=== PATIENT | female | born 1995 | race Caucasian/White ===

== ENCOUNTER 2022-05-13 05:45 | Inpatient (IN) | payer OTHER ==
[2022-05-13 06:59] VITALS: BMI 31.6
[2022-05-13] MEDS ORDERED: ELECTROLYTE-148 SOLN 1,000 ML IV SCH ×2 (07:15→08:00)
[2022-05-13] MEDS ORDERED: CITRIC ACID/SODIUM CITRATE 30 ML UNIT-DOSE CUP PO ONE (07:15)
[2022-05-13] MEDS ORDERED: ELECTROLYTE-148 SOLN 500 ML IV ONE (07:15)
[2022-05-13] MEDS ORDERED: SUCCINYLCHOLINE CHLORIDE 200 MG/10 ML SYRINGE ONE (07:55)
[2022-05-13] MEDS ORDERED: PROPOFOL 20 ML ONE (07:55)
[2022-05-13] MEDS ORDERED: morphine SULFATE (PF) 1 MG/2 ML SYRINGE ONE (07:55)
[2022-05-13] MEDS ORDERED: ePHEDrine SULFATE 50 MG/1 ML AMPULE ONE (07:56)
[2022-05-13] MEDS ORDERED: ONDANSETRON 4 MG/2 ML VIAL IVPUSH PRN (08:01)
[2022-05-13] MEDS ORDERED: morphine SULFATE/PF 1 MG/2 ML (2cc Syringe - QUVA) EP ONE (08:01)
[2022-05-13] MEDS ORDERED: PHENYLEPHRINE HCL 10 MG/1 ML SINGLE DOSE VIAL ONE (08:30)
[2022-05-13] MEDS ORDERED: MISOPROSTOL 200 MCG TABLET ONE (08:42)
[2022-05-13] MEDS ORDERED: IBUPROFEN 800 MG/8 ML IJ IVPB PRN (09:00)
[2022-05-13] MEDS ORDERED: WITCH HAZEL 50% (TUCKS) 40 PAD/JAR PAD TP PRN (09:00)
[2022-05-13] MEDS ORDERED: IBUPROFEN 600 MG TABLET (FP) PO PRN (09:00)
[2022-05-13] MEDS ORDERED: BENZOCAINE 20% 57 GM BOTTLE TP PRN (09:00)
[2022-05-13] MEDS ORDERED: BENZOCAINE 28 GM HEMORRHOIDAL OINTMENT TP PRN (09:00)
[2022-05-13] MEDS ORDERED: METHYLERGONOVINE MALEATE 0.2 MG/1 ML AMP IM PRN (09:00)
[2022-05-13] MEDS ORDERED: OXYTOCIN 20 UNITS in 0.9% NS 20 UNIT/1,000 ML INFUS.BAG IV ONE (09:40)
[2022-05-13] MEDS: OXYTOCIN 20 UNITS in 0.9% NS 20 UNIT/1,000 ML INFUS.BAG IV SCH ×2 (09:42→18:04)
[2022-05-13] MEDS: FERROUS SO4 325 MG TABLET (FP) PO SCH ×2 (09:43→22:00)
[2022-05-13] MEDS ORDERED: MISOPROSTOL 200 MCG TABLET PV ONE (09:43)
[2022-05-13] MEDS: PRENATAL VITAMINS W/ FOLIC ACID TABLET (FP) PO SCH (10:16)
[2022-05-13] MEDS: ACETAMINOPHEN 1000 MG/100 ML BAG IVPB PRN ×3 (11:21→23:55)
[2022-05-14] MEDS: ACETAMINOPHEN 325 MG TABLET (FP) PO PRN ×3 (05:59→21:54)
[2022-05-14 08:56] LABS: BASO % 0.5 % (0-2.0); EOS % 0.3 % (0-4.5); HEMOGLOBIN 9.4 GM/dL (10.7-15.3); LYMPH % 15.3 % (8-40); MCH 29.4 pg (25.7-33.7); MCHC 33.5 g/dl (32.0-36.0); MEAN CELL VOLUME 87.7 fl (80-96); MEAN PLT VOLUME 8.1 fl (7.5-11.1); NEUT % 77.9 % (42.8-82.8); PLATELET COUNT 191 10^3/uL (134-434); RBC 3.19 M/mm3 (3.60-5.2); RDW 12.9 % (11.6-15.6)
[2022-05-14] MEDS ORDERED: BISACODYL 10 MG SUPP.RECT RC PRN (09:00)
[2022-05-14] MEDS ORDERED: FLU VACC QS2022-23(6MOS UP)/PF 60 MCG/0.5 ML SYRINGE IM ONE (10:00)
[2022-05-14] MEDS ORDERED: DIPHTH,PERTUSS(ACELL),TET 0.5 ML DISP.SYRIN IM ONE (10:00)
[2022-05-14] MEDS: FERROUS SO4 325 MG TABLET (FP) PO SCH ×2 (10:21→21:00)
[2022-05-14] MEDS: PRENATAL VITAMINS W/ FOLIC ACID TABLET (FP) PO SCH (10:23)
[2022-05-14] MEDS: SIMETHICONE 80 MG TAB.CHEW (FP) PO PRN (20:01)
[2022-05-14] MEDS: SENNOSIDES/DOCUSATE COMBO (SENNA PLUS) TABLET (UD) PO PRN (20:04)
[2022-05-15] MEDS: SIMETHICONE 80 MG TAB.CHEW (FP) PO PRN ×2 (03:20→21:20)
[2022-05-15] MEDS: ACETAMINOPHEN 325 MG TABLET (FP) PO PRN (03:23)
[2022-05-15] MEDS: FERROUS SO4 325 MG TABLET (FP) PO SCH ×2 (09:29→21:20)
[2022-05-15] MEDS: PRENATAL VITAMINS W/ FOLIC ACID TABLET (FP) PO SCH (09:29)
[2022-05-15] MEDS: oxyCODONE HCL 5 MG TABLET PO PRN ×2 (12:52→18:37)
[2022-05-15] MEDS: SENNOSIDES/DOCUSATE COMBO (SENNA PLUS) TABLET (UD) PO PRN (21:20)
[2022-05-15 23:57] VITALS: RESP 17
[2022-05-16] MEDS: oxyCODONE HCL 5 MG TABLET PO PRN (01:25)
[2022-05-16 09:08] LABS: BASO % 0.4 % (0-2.0); EOS % 2.4 % (0-4.5); HEMOGLOBIN 10.4 GM/dL (10.7-15.3); LYMPH % 20.7 % (8-40); MCH 29.3 pg (25.7-33.7); MCHC 33.6 g/dl (32.0-36.0); MEAN CELL VOLUME 87.3 fl (80-96); MEAN PLT VOLUME 7.7 fl (7.5-11.1); MONO % 10.1 % (3.8-10.2); NEUT % 66.4 % (42.8-82.8); PLATELET COUNT 270 10^3/uL (134-434); RBC 3.55 M/mm3 (3.60-5.2); RDW 12.8 % (11.6-15.6); WHITE BLOOD COUNT 7.3 K/mm3 (4.0-10.0)
[2022-05-16] MEDS: SIMETHICONE 80 MG TAB.CHEW (FP) PO PRN (09:55)
[2022-05-16] MEDS: ACETAMINOPHEN 325 MG TABLET (FP) PO PRN (09:55)
[2022-05-16] MEDS: FERROUS SO4 325 MG TABLET (FP) PO SCH (09:56)
[2022-05-16] MEDS: PRENATAL VITAMINS W/ FOLIC ACID TABLET (FP) PO SCH (09:56)
[2022-05-16 11:43] VITALS: BP 112/64; PULSE 78; TEMP 98.4
== END 2022-05-16 13:20 | disposition home or self-care (01) | DRG 540 ==
LOC: EDBD → JLDR 05:45 → J3W 10:30
PROVIDERS: ADMIT Obstetrics & Gynecology; ATTEND Obstetrics & Gynecology
PROC: 10D00Z1 Extraction of Products of Conception, Low, Open Approach (ICD-10-PCS; principal; 2022-05-13)
DX: O34.211 Maternal care for low transverse scar from previous cesarean delivery (principal); O69.81X0 Labor and delivery complicated by cord around neck, without compression, not applicable or unspecified; Z3A.39 39 weeks gestation of pregnancy; Z37.0 Single live birth
CPT/HCPCS: 36415; 85025; 88307-TC; 90715; G0008; Q2036

== ENCOUNTER 2024-09-13 16:12 | Inpatient (IN) | payer OTHER ==
[2024-09-13] MEDS ORDERED: ACETAMINOPHEN INJECTION 100 ML ONE ×2 (17:13→23:04)
[2024-09-13] MEDS: ELECTROLYTE-148 SOLN 500 ML IV SCH (17:15)
[2024-09-13] MEDS: ACETAMINOPHEN 1000 MG/100 ML BAG IVPB ONE ×2 (17:20→23:10)
[2024-09-13] MEDS: ELECTROLYTE-148 SOLN 1,000 ML IV SCH (18:44)
[2024-09-13 19:28] LABS: BASO % 0.7 % (0-2.0); EOS % 0.6 % (0-4.5); HEMATOCRIT 27.1 % (32.4-45.2); HEMOGLOBIN 8.6 GM/dL (10.7-15.3); LYMPH % 24.8 % (8-40); MCH 22.7 pg (25.7-33.7); MCHC 31.7 g/dl (32.0-36.0); MEAN CELL VOLUME 71.6 fl (80-96); MEAN PLT VOLUME 8.4 fl (7.5-11.1); NEUT % 64.9 % (42.8-82.8); PLATELET COUNT 235 10^3/uL (134-434); RBC 3.78 M/mm3 (3.60-5.2); RDW 16.6 % (11.6-15.6); WHITE BLOOD COUNT 8.2 K/mm3 (4.0-10.0)
[2024-09-13 19:36] LABS: PROTHROMBIN TIME (PATIENT) 10.9 SEC (9.7-13.0)
[2024-09-13 19:39] LABS: ACTIVATED PTT 25.9 SECONDS (25.2-36.5)
[2024-09-13 20:13] LABS: POTASSIUM 4.1 mmol/L (3.5-5.1)
[2024-09-13 20:15] LABS: ALBUMIN 2.7 g/dl (3.4-5.0); BLOOD UREA NITROGEN 8.9 mg/dL (7-18); CALCIUM 7.9 mg/dL (8.5-10.1)
[2024-09-13 20:19] LABS: CREATININE 0.4 mg/dL (0.55-1.3)
[2024-09-13 20:20] LABS: BILIRUBIN,TOTAL 0.2 mg/dL (0.2-1)
[2024-09-13 20:22] LABS: TOT PROT 6.2 g/dl (6.4-8.2)
[2024-09-14 00:20] VITALS: BMI 29.2
[2024-09-14 07:37] LABS: BASO % 0.8 % (0-2.0); EOS % 0.8 % (0-4.5); HEMATOCRIT 23.7 % (32.4-45.2); HEMOGLOBIN 7.5 GM/dL (10.7-15.3); LYMPH % 31.2 % (8-40); MCH 22.9 pg (25.7-33.7); MCHC 31.8 g/dl (32.0-36.0); MEAN CELL VOLUME 72.1 fl (80-96); MEAN PLT VOLUME 8.5 fl (7.5-11.1); MONO % 8.7 % (3.8-10.2); NEUT % 58.5 % (42.8-82.8); PLATELET COUNT 223 10^3/uL (134-434); RBC 3.28 M/mm3 (3.60-5.2); RDW 16.3 % (11.6-15.6); WHITE BLOOD COUNT 7.5 K/mm3 (4.0-10.0)
[2024-09-14] MEDS ORDERED: morphine SULFATE/PF 1 MG/2 ML (2cc Syringe - QUVA) ONE (09:05)
[2024-09-14] MEDS ORDERED: FENTANYL CITRATE/PF 50 MCG/ML VIAL ONE (09:05)
[2024-09-14 09:29] LABS: BASO % 0.6 % (0-2.0); EOS % 0.5 % (0-4.5); HEMATOCRIT 27.1 % (32.4-45.2); HEMOGLOBIN 8.8 GM/dL (10.7-15.3); LYMPH % 28.4 % (8-40); MCHC 32.4 g/dl (32.0-36.0); MEAN CELL VOLUME 71.1 fl (80-96); MEAN PLT VOLUME 8.7 fl (7.5-11.1); MONO % 8.6 % (3.8-10.2); NEUT % 61.9 % (42.8-82.8); PLATELET COUNT 230 10^3/uL (134-434); RBC 3.82 M/mm3 (3.60-5.2); RDW 16.6 % (11.6-15.6); WHITE BLOOD COUNT 7.2 K/mm3 (4.0-10.0)
[2024-09-14 09:30] LABS: INR 1.03 (0.83-1.09); PROTHROMBIN TIME (PATIENT) 11.3 SEC (9.7-13.0)
[2024-09-14] MEDS ORDERED: LIGASURE IMPACT TP ONE (09:30)
[2024-09-14 09:33] LABS: ACTIVATED PTT 25.3 SECONDS (25.2-36.5)
[2024-09-14] MEDS ORDERED: OXYTOCIN 10 UNITS/ML VIAL ONE (09:33)
[2024-09-14 09:58] LABS: POTASSIUM 3.9 mmol/L (3.5-5.1)
[2024-09-14 10:01] LABS: CALCIUM 8.4 mg/dL (8.5-10.1)
[2024-09-14 10:02] LABS: BLOOD UREA NITROGEN 5.7 mg/dL (7-18)
[2024-09-14 10:05] LABS: CREATININE 0.4 mg/dL (0.55-1.3)
[2024-09-14 10:20] LABS: CORD BASE EXCESS -2.8 mmol/L (0-2); CORD HCO3 23.8 mmHg (20-29); CORD PCO2 48.8 mmHg (30-78); CORD pH 7.306 (7.14-7.44)
[2024-09-14 10:20] LABS: CORD BASE EXCESS -3.3 mmol/L (0-2); CORD HCO3 22.2 mmHg (20-29); CORD PCO2 41.3 mmHg (30-78); CORD pH 7.348 (7.14-7.44)
[2024-09-14] MEDS ORDERED: ONDANSETRON 4 MG/2 ML VIAL IVPB PRN (11:22)
[2024-09-14] MEDS ORDERED: IBUPROFEN 600 MG TABLET (FP) PO PRN ×2 (11:24→12:40)
[2024-09-14] MEDS ORDERED: ACETAMINOPHEN 325 MG TABLET (FP) PO PRN (11:24)
[2024-09-14] MEDS ORDERED: SIMETHICONE 80 MG TAB.CHEW (FP) PO PRN (11:24)
[2024-09-14] MEDS ORDERED: METHYLERGONOVINE MALEATE 0.2 MG/1 ML AMP IM PRN (11:24)
[2024-09-14] MEDS ORDERED: OXYTOCIN 20 UNITS in 0.9% NS 20 UNIT/1,000 ML INFUS.BAG IV SCH (11:30)
[2024-09-14] MEDS ORDERED: ACETAMINOPHEN INJECTION 100 ML ONE (11:34)
[2024-09-14] MEDS: ACETAMINOPHEN 1000 MG/100 ML BAG IVPB PRN (11:36)
[2024-09-14] MEDS ORDERED: IBUPROFEN (CALDOLOR) 800 MG/200 ML PREMIX BAGS IVPB SCH (12:45)
[2024-09-14] MEDS: OXYTOCIN 20 UNITS in 0.9% NS 20 UNIT/1,000 ML INFUS.BAG IV SCH (12:47)
[2024-09-14] MEDS: ACETAMINOPHEN 1000 MG/100 ML BAG IVPB SCH (12:49)
[2024-09-14 18:46] LABS: HIV INTERPRETATION NEGATIVE (NEGATIVE)
[2024-09-14] MEDS: IBUPROFEN (CALDOLOR) 800 MG/200 ML PREMIX BAGS IVPB SCH (19:39)
[2024-09-14] MEDS: SENNOSIDES/DOCUSATE COMBO (SENNA PLUS) TABLET (UD) PO SCH (22:40)
[2024-09-14] MEDS ORDERED: oxyCODONE HCL 5 MG TABLET PO PRN ×2 (23:24)
[2024-09-15 06:25] VITALS: RESP 18
[2024-09-15 08:16] LABS: BASO % 0.5 % (0-2.0); EOS % 0.3 % (0-4.5); HEMOGLOBIN 9.5 GM/dL (10.7-15.3); LYMPH % 12.2 % (8-40); MCH 24.3 pg (25.7-33.7); MCHC 32.9 g/dl (32.0-36.0); MEAN CELL VOLUME 73.8 fl (80-96); MEAN PLT VOLUME 8.4 fl (7.5-11.1); MONO % 7.5 % (3.8-10.2); NEUT % 79.5 % (42.8-82.8); PLATELET COUNT 197 10^3/uL (134-434); RBC 3.93 M/mm3 (3.60-5.2); RDW 17.9 % (11.6-15.6); WHITE BLOOD COUNT 12.6 K/mm3 (4.0-10.0)
[2024-09-15] MEDS: ACETAMINOPHEN 500 MG TABLET (FP) PO PRN (09:35)
[2024-09-15] MEDS: PRENATAL VITAMINS W/ FOLIC ACID TABLET (FP) PO SCH (09:52)
[2024-09-15] MEDS: DIPHTH,PERTUSS(ACELL),TET 0.5 ML DISP.SYRIN IM ONE (09:52)
[2024-09-15] MEDS: ENOXAPARIN NA (PORCINE) 40 MG/0.4 ML DISP.SYRIN SQ SCH (09:54)
[2024-09-15] MEDS ORDERED: IBUPROFEN 600 MG TABLET (FP) PO PRN (10:30)
[2024-09-15] MEDS ORDERED: BISACODYL 10 MG SUPP.RECT RC PRN ×2 (11:22→11:24)
[2024-09-15] MEDS: oxyCODONE HCL 5 MG TABLET PO PRN (18:45)
[2024-09-15] MEDS: SIMETHICONE 80 MG TAB.CHEW (FP) PO PRN (20:05)
[2024-09-17 11:15] VITALS: BP 106/68; PULSE 92; TEMP 98.9
== END 2024-09-17 18:40 | disposition home or self-care (01) | DRG 540 ==
LOC: JDEL 16:12 → JLDR 21:00 → OBSVTOIN 09-14 08:00 → JLDR 09-14 09:54 → J3W 09-14 12:20
PROVIDERS: ADMIT Obstetrics & Gynecology Obstetrics; ATTEND Obstetrics & Gynecology Obstetrics
PROC: 10D00Z1 Extraction of Products of Conception, Low, Open Approach (ICD-10-PCS; principal; 2024-09-14)
PROC: 0UB70ZZ Excision of Bilateral Fallopian Tubes, Open Approach (ICD-10-PCS; 2024-09-14)
PROC: 30233N1 Transfusion of Nonautologous Red Blood Cells into Peripheral Vein, Percutaneous Approach (ICD-10-PCS; 2024-09-14)
DX: O45.93 Premature separation of placenta, unspecified, third trimester (principal); O99.013 Anemia complicating pregnancy, third trimester; Z3A.35 35 weeks gestation of pregnancy; O60.14X0 Preterm labor third trimester with preterm delivery third trimester, not applicable or unspecified; O34.211 Maternal care for low transverse scar from previous cesarean delivery; N85.8 Other specified noninflammatory disorders of uterus; Z30.2 Encounter for sterilization; Z37.0 Single live birth
CPT/HCPCS: 36415; 36430; 36600; 59409; 76819-TC; 80048; 80053; 82803; 85025; 85384; 85610; 85730; 86780; 86850; 86900; 86901; 86922; 87389; 88305-TC; 88307-TC; 90715; G0378; J0131; P9038; P9058